=== PATIENT | female | born 1985 | race American Indian/Alaskan Native ===

== ENCOUNTER 2019-08-26 12:52 | Outpatient (CLI) | payer BC ==
--- NOTE | 2019-08-27 12:02 | Ultrasound Report ---
BILATERAL BREAST ULTRASOUND HISTORY: History of right breast cancer status post partial mastectomy, radiation therapy and chemot herapy. She has not had a mammogram since she is 11 weeks . COMPARISON: None. FINDINGS: Ultrasound of all 4 quadrants and the retroareolar area of each breast demonstrates no sig nificant abnormality. No mass, cyst or suspicious shadowing. Ultrasound of the bilateral axillae dem onstrate no suspicious lymph nodes. IMPRESSION: Negative bilateral breast ultrasound. If the clinical examination remains stable, recommend annual screening mammographic evaluation. BIRADS 1: Negative. Signer Name: Marc Pineda MD Signed: 08/27/2019 11:57 AM Workstation Name: [id number]
== END 2019-08-26 12:53 | disposition home or self-care (01) ==
LOC: SPVWC 12:52
PROVIDERS: ATTEND Surgery
DX: Z85.3 Personal history of malignant neoplasm of breast (principal)

== ENCOUNTER 2020-07-28 08:39 | Outpatient (CLI) | payer BC ==
--- NOTE | 2020-07-28 09:26 | Mammography Report ---
DIGITAL SCREENING MAMMOGRAM WITH CAD, 07/28/2020 CLINICAL INFORMATION / INDICATION: Routine screening mammography. SCREENING MAMMO TECHNIQUE: Digital bilateral 2D mammography was obtained in the craniocaudal and mediolateral obliqu e projections. This examination was interpreted with the benefit of Computer-Aided Detection analysis . COMPARISON: 07/24/2018 FINDINGS: Breast Density: The breasts are heterogeneously dense, which may obscure small masses. No dominant mass, suspicious calcifications, or architectural distortion in either breast. Old scar again seen in the right breast. Right breast is again smaller than the left. IMPRESSION: No mammographic evidence of malignancy. Follow up recommendation: Routine yearly BI-RADS Category 2: Benign. A "normal" or negative report should not discourage follow up or biopsy of a clinically significant f inding. A written summary of these findings will be mailed to the patient. The patient will be entered into a mammography reporting system which will generate a reminder letter for the patient's next appointmen t at the appropriate interval. The [employer] recommends yearly mammograms starting at age 40 and continuing as l [place] as a woman is in good health. Breast MRI is recommended for women with an approximate 20-25% or greater lifetime risk of breast cancer, including women with a strong family history of breast or ova renetta cancer or who have been treated for Hodgkin's disease. Signer Name: Joby Hogue MD Signed: 07/28/2020 9:22 AM Workstation Name: [id number]
== END 2020-07-28 08:40 | disposition home or self-care (01) ==
LOC: SPVWC 08:39
PROVIDERS: ATTEND Surgery
DX: Z12.31 Encounter for screening mammogram for malignant neoplasm of breast (principal)
CPT/HCPCS: 77067